=== PATIENT | male | born 1955 | race Caucasian/White ===

== ENCOUNTER 2018-03-19 09:17 | Inpatient (IN) | payer BC ==
[~2018-03-19] VITALS: Ht 177.8 cm; Wt 106.6 kg
[~2018-03-19 09:17] MED LIST: OLME1TAB26 PO
[2018-03-19 09:45] LABS: BASOPHILS # (AUTO) 0.1 /CMM (0.0-0.2); EOSINOPHILS % (AUTO) 3.3 % (0.0-6.0); HEMATOCRIT 51 % (39-51); HEMOGLOBIN 17.2 g/dL (13.5-17.5); LYMPHOCYTES # (AUTO) 1.9 /CMM (0.8-4.8); LYMPHOCYTES % (AUTO) 25.6 % (20.0-44.0); MEAN CORPUSCULAR HGB CONC 34 g/dl (31.0-36.0); MEAN CORPUSCULAR VOLUME 90 fL (80-96); MONOCYTES # (AUTO) 0.6 /CMM (0.1-1.30); MONOCYTES % (AUTO) 7.8 % (2.0-12.0); NEUTROPHILS # (AUTO) 4.5 /CMM (1.8-8.9); NEUTROPHILS % (AUTO) 62.3 % (43.0-81.0); PLATELET COUNT (AUTO) 314 /CMM (150-450); RED BLOOD CELL COUNT(AUTO) 5.65 MIL/uL (4.5-6.0); WHITE BLOOD COUNT (AUTO) 7.3 K/uL (4.3-11.0)
--- NOTE | 2018-03-19 09:53 | NUR ---
BIB SELF, C/O BLURRED VISION ON LT EYE X 1 WK. DENIES BRODERICK, DIZZINESS,WEAKNESS, NUMBNESS/TINGLING SENSATION @ THIS TIME. ALERT AND ORIENTED X 4, VERBALLY RESPONSIVE AND ABLE TO MAKE NEEDS KNOWN. BREATHING EVENLY AND UNLABORED. KEPT COMFORTABLE. WILL CONTINUE TO MONITOR ACCORDINGLY.
--- NOTE | 2018-03-19 09:55 | NUR ---
PT TAKEN TO RADIOLOGY.
[2018-03-19 09:58] LABS: CALCIUM, SERUM 9.3 mg/dL (8.5-10.1); CREATININE 1.2 mg/dL (0.6-1.3); POTASSIUM 4.1 mmol/L (3.5-5.1)
[2018-03-19 10:03] LABS: ALBUMIN 4.1 g/dL (3.4-5.0); BILIRUBIN,DIRECT 0.1 mg/dL (0.0-0.2); BILIRUBIN,TOTAL 0.5 mg/dL (0.2-1.0); TOTAL PROTEIN, SERUM 8.3 g/dL (6.4-8.2)
[2018-03-19] MEDS ORDERED: IV NS 0.9% 250 ML IV ONE (11:10)
[2018-03-19] MEDS ORDERED: CT SWABBABLE VALVE TRANS SET 1 EA INFUS.SET MC ONE (11:10)
[2018-03-19] MEDS ORDERED: IOHEXOL-350 100 ML VIAL IV ONE (11:10)
[2018-03-19] MEDS ORDERED: ASPIRIN 325 MG TABLET ONE (11:23)
[2018-03-19] MEDS ORDERED: ASPIRIN 325 MG TABLET PO ONE (11:30)
--- NOTE | 2018-03-19 14:28 | NUR ---
REPORT GIVEN TO WAYNE DUTTON FOR HERMINIO. PT GOING TO ROOM 304-2 T.
--- NOTE | 2018-03-19 14:30 | NUR ---
WHEELED PATIENT TO ROOM 3040-2 T VIA ACLS PROTOCOL. IN NO APPARENT DISTRESS AT THIS TIME.
--- NOTE | 2018-03-19 15:40 | NUR ---
BREAKER UNIT ASSEMBLER OPENING NOTES ADMITTED PT TO UNIT @ 1440 VIA [facility] ACCOMPANIED BY Steffany JONES. A/O X4. PT ABLE TO AMBULATE FROM [facility] TO HIS BED. ABLE TO VERBALIZED NEEDS WITH NO C/O PAIN BUT WITH MILD LEFT EYE DISCOMFORTS WITH NO BLURRY VISION AT THIS TIME. ON ROOM AIR, BREATHING EVEN AND UNLABORED. PT ORIENTED TO UNIT. HEAD TO TOE ASSESSMENT DONE, PT WITH INTACT SKIN. IV ACCESS NOTED ON RAC G#20 INTACT AND PATENT. ABDOMEN SOFT, NON-TENDED AND NON-DISTENDED. LUNGS CLEAR ON AUSCULTATION. PT PLACED ON TELEMONITORING WITH READING OF SR WITH HR OF 89, NO CARDIAC DISTRESS VOICED. PT WITH CLEAR SPEECH, NO FACIAL DROOPING AND NO DRIFT ON ALL FOUR EXTREMITIES, SAME ABLE TO SWALLOW WITHOUT PROBLEM. SAFETY MEASURES INITIATED. BED IN LOW/LOCKED POSITION WITH SR UP X2, CALL LIGHT PLACED WITHIN EASY REACH. WILL CONTINUE TO MONITOR PT ACCORDINGLY. Addendum: 03/19/18 at 1942 by MARY THOMPSON RN CORRECTION: THIS IS TELE ADMITTING NOTES
[2018-03-19 15:53] LABS: THYROID STIMULATING HORMONE 1.885 uIU/mL (0.358-3.74)
[2018-03-19 16:00] VITALS: BP 155/90
[2018-03-19] MEDS: ATORVASTATIN 40 MG TABLET PO SCH (16:32)
--- NOTE | 2018-03-19 17:27 | NUR ---
RN NOTES PATIENT TRANSPORTED DOWN TO MRI TRAILER VIA WHEELCHAIR FOR MRI OF BRAIN INCLUDING B/L YES ORBITS WITH/WITH CONTRAST. CONSENT SIGNED AND CHECKLIST DONE.
[2018-03-19] MEDS: BLOOD SUGAR DIAGNOSTIC 1 EACH STRIP IN SCH ×2 (17:30→22:09)
[2018-03-19] MEDS ORDERED: BLOOD SUGAR DIAGNOSTIC 1 EACH STRIP IN SCH (18:00)
--- NOTE | 2018-03-19 19:42 | NUR ---
[employer] CLOSING NOTES PATIENT AWAKE IN BED WITH FAMILY AT BEDSIDE. A/O X4, SAME ABLE TO MAKE NEEDS KNOWN. ON TELE-MONITORING WITH CURRENT READING OF SR AND HR OF 88, NO CARDIAC DISTRESS VOICED. IV ACCESS ON RAC G#20 INTACT AND PATENT, SL ONLY AND FLUSHES WELL. ALL NEEDS NAD CARE ATTENDED WELL. ALL SAFETY MEASURES IN PLACE. BED IN LOW/LOCKED POSITION WITH SR UP X2. CALL CHANG WITHIN EASY REACH. ENDORSED TO AMMONIA REFRIGERATION TECHNICIAN NURSE HERMELINDA FOR HERMINIO.
--- NOTE | 2018-03-19 19:43 | NUR ---
TELE/RN OPENING NOTES PT AWAKE, RESTING COMFORTABLY IN BED. A/OX4. ON ROOM AIR, BREATHING EVEN AND UNLABORED. DENIES SOB, CP, N/V AT THIS TIME. IN NO ACUTE DISTRESS. TECH AT BEDSIDE FOR CAROTID ULTRASOUND. EXTERNAL STRIPPER SHOVEL OPERATOR SHOWING ST 101. IV TO RAC PATENT AND INTACT. BED IN LOW/LOCKED POSITION WITH CALL LIGHT IN REACH. BILATERAL UPPER SIDE RAILS IN PLACE. WILL CONTINUE TO MONITOR
[2018-03-19 20:00] VITALS: BP 141/84
--- NOTE | 2018-03-19 20:00 | NUR ---
TELE/RN NOTES PM CARE RENDERED. ASSISTED PT BACK TO BED. INDEPENDENT, STEADY GAIT. OBEYS COMMANDS. PERRLA. ALL EXTREMITIES WNL, 5/5 STRENGTH, NO EXTREMITY DRIFT. NO FACIAL DROOP OR SLURRED SPEECH. WILL CONTINUE TO MONITOR
--- NOTE | 2018-03-19 21:10 | NUR ---
TELE/RN NOTES NOTIFIED BRAND DIRECTOR, DIEUDONNE REGARDING RESULTS OF MRI BRAIN, MRI FACE/HEAD/NECK AND US CAROTID ARTERY.
[2018-03-20] VITALS: BP 114/64
[2018-03-20 04:00] VITALS: BP 110/69
[2018-03-20 06:19] LABS: BASOPHILS # (AUTO) 0.1 /CMM (0.0-0.2); BASOPHILS % (AUTO) 1.2 % (0.0-2.0); HEMATOCRIT 48 % (39-51); HEMOGLOBIN 16.3 g/dL (13.5-17.5); LYMPHOCYTES # (AUTO) 2.8 /CMM (0.8-4.8); LYMPHOCYTES % (AUTO) 32.9 % (20.0-44.0); MEAN CORPUSCULAR HGB CONC 34 g/dl (31.0-36.0); MEAN CORPUSCULAR VOLUME 89 fL (80-96); MONOCYTES # (AUTO) 0.9 /CMM (0.1-1.30); MONOCYTES % (AUTO) 10.1 % (2.0-12.0); NEUTROPHILS # (AUTO) 4.4 /CMM (1.8-8.9); NEUTROPHILS % (AUTO) 51.8 % (43.0-81.0); PLATELET COUNT (AUTO) 299 /CMM (150-450); RED BLOOD CELL COUNT(AUTO) 5.37 MIL/uL (4.5-6.0); WHITE BLOOD COUNT (AUTO) 8.6 K/uL (4.3-11.0)
[2018-03-20 06:33] LABS: ALBUMIN 3.6 g/dL (3.4-5.0); BILIRUBIN,TOTAL 0.4 mg/dL (0.2-1.0); CALCIUM, SERUM 9.1 mg/dL (8.5-10.1); MAGNESIUM 2.1 mg/dL (1.8-2.4); PHOSPHORUS 4.1 mg/dL (2.5-4.9); POTASSIUM 3.3 mmol/L (3.5-5.1); TOTAL PROTEIN, SERUM 7.3 g/dL (6.4-8.2)
[2018-03-20] MEDS: BLOOD SUGAR DIAGNOSTIC 1 EACH STRIP IN SCH ×3 (06:36→17:32)
--- NOTE | 2018-03-20 06:49 | NUR ---
TELE/RN CLOSING NOTES PT RESTING COMFORTABLY IN BED. A/OX3. ON ROOM AIR, BREATHING EVEN AND UNLABORED. DENIES SOB, N/V, CP. IN NO ACUTE DISTRESS. ON EXTERNAL SLEEPER CUTTER SHOWING SR 72. PT STATES BLURRY VISION TO LEFT EYE HAS IMPROVED. ALL EXTREMITIES REMAINS WITH 5/5 STRENGTH, PERRLA, NO FACIAL DROOP OR SLURRED SPEECH. IV TO RAC PATENT AND INTACT. NO SIGNIFICANT CHANGES OVERNIGHT. KEPT PT COMFORTABLE DURING SHIFT. ALL NEEDS MET. BED IN LOW/LOCKED POSITION, HOB ELEVATED. BILATERAL UPPER SIDE RAILS IN PLACE. WILL ENDORSE TO DAY SHIFT RN HERMINIO.
[2018-03-20 08:00] VITALS: BP 142/85
--- NOTE | 2018-03-20 08:00 | NUR ---
TELE/RN AM NOTES PT RESTING COMFORTABLY IN BED. A/OX3. ON ROOM AIR, BREATHING EVEN AND UNLABORED. DENIES PAIN,SOB, N/V, CP. IN NO ACUTE DISTRESS. ON EXTERNAL SUPERVISING EDITOR NEWS REEL SHOWING SR 100. PT DENIES BLURRY VISION.ALL EXTREMITIES REMAINS WITH 5/5 STRENGTH, PERRLA, NO FACIAL DROOP OR SLURRED SPEECH. IV TO RAC PATENT AND INTACT.AMB AD ADRIANA WITH STEADY GAIT. KEPT PT COMFORTABLE .BED IN LOW/LOCKED POSITION, HOB ELEVATED. BILATERAL UPPER SIDE RAILS IN PLACE. CALL LIGHT PLACED WITHIN REACH.
[2018-03-20] MEDS ORDERED: ASPIRIN 81 MG TAB.CHEW PO SCH (09:00)
[2018-03-20] MEDS: ATORVASTATIN 40 MG TABLET PO SCH (09:17)
[2018-03-20] MEDS ORDERED: OLME1TAB34 PO (10:29)
[2018-03-20] MEDS ORDERED: ASPI-1169 PO (10:29)
[2018-03-20] MEDS ORDERED: IOHEXOL-350 100 ML VIAL IV ONE (11:39)
[2018-03-20] MEDS ORDERED: CT SWABBABLE VALVE TRANS SET 1 EA INFUS.SET MC ONE (11:39)
[2018-03-20] MEDS ORDERED: IV NS 0.9% 250 ML IV ONE (11:39)
[2018-03-20] MEDS ORDERED: POTASSIUM CHLORIDE 20 MEQ TAB.PRT.SR PO SCH (12:00)
[2018-03-20 12:30] VITALS: BP 149/84
[2018-03-20] MEDS ORDERED: ATOR40TA PO (14:27)
[2018-03-20 15:26] LABS: APPEARANCE,URINE TURBID (CLEAR); COLOR,URINE YELLOW (YELLOW); PROTEIN,URINE NEGATIVE (NEGATIVE); UGLUCOSE NEGATIVE (NEGATIVE)
[2018-03-20 15:27] LABS: BILIRUBIN,URINE NEGATIVE (NEGATIVE); BLOOD, URINE NEGATIVE Ery/uL (NEGATIVE); KETONES,URINE NEGATIVE (NEGATIVE); LEUKOCYTE ESTERASE ,URINE NEGATIVE (NEGATIVE); NITRITE, URINE NEGATIVE (NEGATIVE); UROBILINOGEN,URINE 0.2 EU/dL (0.2)
[2018-03-20 16:00] VITALS: BP 144/86
[2018-03-20] MEDS ORDERED: ONDANSETRON HCL/PF 4 MG/2 ML VIAL IV PRN (16:00)
[2018-03-20 16:44] LABS: BACTERIA,URINE None seen /HPF (None Seen); RBC,URINE NONE SEEN /HPF (0-2); SQUAMOUS EPITHELIAL CELL,UR None Seen /HPF (None Seen); WBC,URINE NONE SEEN /HPF (0-3)
[2018-03-20 16:45] LABS: URINE AMORPHOUS URATE Many /HPF (None Seen)
[2018-03-20] MEDS ORDERED: GADODIAMIDE 5 MMOL/10 ML VIAL IJ ONE (17:38)
--- NOTE | 2018-03-20 19:21 | NUR ---
DISCHARGED PT WITH STABLE V/S.ACCOMPANIED BY HIS .PT DENIES ANY CHEST PAIN,ANY DISCOMFORT OR DISTRESS.IV H/L REMOVED TO RT AC WITH NO BLEEDING NOTED.PT TOLERATED WELL.ALL PRESCRIPTIONS AND DISCHARGE NOTES COPIES FAXED TO PT'S PMD,DR WILDER PER PT REQUEST AND GIVEN TO THE PT.
[2018-03-20] MEDS ORDERED: ATORVASTATIN 40 MG TABLET PO SCH (22:00)
[2018-03-21] MEDS ORDERED: LOSARTAN/HCTZ 50-12.5MG/ 1 EA TABLET PO SCH (09:00)
[2018-03-21] MEDS ORDERED: AMLODIPINE BESYLATE 10 MG TABLET PO SCH (09:00)
== END 2018-03-20 19:20 | disposition home or self-care (01) | DRG 64 ==
LOC: ER 09:19 → TELE 13:40
PROVIDERS: ADMIT Internal Medicine; ATTEND Student in an Organized Health Care Education/Training Program
DX: I63.89 Other cerebral infarction (principal); I21.A1 Myocardial infarction type 2; I10 Essential (primary) hypertension; E78.5 Hyperlipidemia, unspecified; H54.62 Unqualified visual loss, left eye, normal vision right eye; H53.40 Unspecified visual field defects
CPT/HCPCS: 36415; 70450-TC; 70496-TC; 70498-TC; 70542-TC; 70553-TC; 71045-TC; 80048-TC; 80053-TC; 80061-TC; 80076-TC; 80305; 81000-TC; 82962-TC; 83735-TC; 83880; 84100-TC; 84439-TC; 84443-TC; 84484-TC; 85025-TC; 85652-TC; 85730-TC; 87081-TC; 92611-TC; 93307-TC; 93880-TC; A9579; G0378; J2405; J7050; Q9967